=== PATIENT | male | born 1965 | race African-American/Black ===

== ENCOUNTER 2020-07-18 18:13 | Emergency (ER) | payer MEDICAID ==
[~2020-07-18] VITALS: Ht 182.9 cm; Wt 108.9 kg
[2020-07-18] MEDS ORDERED: oxyCODONE HCL/Acetaminophen 5/325mg ORAL ONE (18:15)
[2020-07-18] MEDS ORDERED: Ketorolac 30mg Inj IV ONE (18:15)
[2020-07-18] MEDS ORDERED: Bacitracin Oint UD TOPIC ONE (18:15)
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
[2020-07-18 18:48] LABS: BASOPHILS % (AUTO) 0.8 % (0.0-2.0); EOSINOPHILS % (AUTO) 1.5 % (0.0-3.0); HEMATOCRIT 46.9 % (42.0-52.0); HEMOGLOBIN 15.2 G/DL (14.2-18.0); LYMPHOCYTES % (AUTO) 13.8 % (20.0-45.0); MEAN CORPUSCULAR VOLUME 89 FL (80-99); MONOCYTES % (AUTO) 5.8 % (1.0-10.0); NEUTROPHILS % (AUTO) 78.2 % (45.0-75.0); PLATELET COUNT 199 K/UL (150-450); RED BLOOD COUNT 5.27 M/UL (4.70-6.10); RED CELL DISTRIBUTION WIDTH 14.6 % (11.6-14.8); WHITE BLOOD COUNT 8.2 K/UL (4.8-10.8)
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
[2020-07-18 18:55] LABS: INR 0.9 (0.9-1.1)
[2020-07-18 19:01] LABS: ANION GAP 11 mmol/L (5-15); BLOOD UREA NITROGEN 10 mg/dL (7-18); CALCIUM 9.6 MG/DL (8.5-10.1); CARBON DIOXIDE 25 MMOL/L (21-32); CHLORIDE 99 MMOL/L (98-107); CREATININE 1.3 MG/DL (0.55-1.30); POTASSIUM 4.4 MMOL/L (3.5-5.1); SODIUM 135 MMOL/L (136-145)
[2020-07-18 19:06] LABS: ALANINE AMINOTRANSFERASE 23 U/L (12-78); ALKALINE PHOSPHATASE 94 U/L (46-116); ASPARTATE AMINO TRANSFERASE 19 U/L (15-37); BILIRUBIN,TOTAL 0.2 MG/DL (0.2-1.0)
--- NOTE | 2020-07-18 19:06 | NUR ---
Spoke with dexigraph operator [phone] at [facility]-will send a unit.
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
[2020-07-18] MEDS ORDERED: metFORMIN 500mg tab ORAL STA (19:15)
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
[2020-07-18] MEDS ORDERED: HYDROCODON-ACE1 EA15 ORAL (20:22)
[2020-07-18] MEDS ORDERED: IBUPROFEN600 M1 ORAL (20:22)
[2020-07-18] MEDS ORDERED: ROBAXIN-500MG ORAL (20:22)
[2020-07-18] MEDS ORDERED: METFORMIN HCL1000 M1 ORAL (20:35)
[2020-07-18 20:58] VITALS: BP 132/88
--- NOTE | 2020-07-18 20:59 | NUR ---
Patient was discharge home as EDP ordered. All vital signs were taken within normal range. Patient . All prescriptions and instructions were given to the patient . Patient verbalized understanding. patient left the hospital in stable condition .
[2020-07-18] MEDS ORDERED: BACITRACIN15 GM TOPIC (21:00)
== END 2020-07-18 20:55 | disposition home or self-care (01) ==
LOC: EDBD 18:13 → EMR 18:21
DX: S20.211A Contusion of right front wall of thorax, initial encounter (principal); S80.12XA Contusion of left lower leg, initial encounter; S50.311A Abrasion of right elbow, initial encounter; S60.419A Abrasion of unspecified finger, initial encounter; E11.65 Type 2 diabetes mellitus with hyperglycemia; F17.200 Nicotine dependence, unspecified, uncomplicated; V02.90XA Pedestrian on foot injured in collision with two- or three-wheeled motor vehicle, unspecified whether traffic or nontraffic accident, initial encounter; Y93.01 Activity, walking, marching and hiking; Y92.411 Interstate highway as the place of occurrence of the external cause
CPT/HCPCS: 36415; 71250; 73590; 80053; 82962; 85025; 85610; 85730; 96361; 96374; J1885; J7030; Z7502; 99284